=== PATIENT | female | born 1980 | race Caucasian/White ===

== ENCOUNTER → 2017-08-17 | Outpatient (REF) | payer BC ==
[2017-08-21 14:16] LABS: HPV HYBRID CAPTURE II Negative (Negative)
== END ==
LOC: M LAB REF 17:23
DX: Z12.4 Encounter for screening for malignant neoplasm of cervix (principal)
CPT/HCPCS: G0123

== ENCOUNTER → 2017-08-28 | Outpatient (CLI) | payer BC ==
[2017-08-28 11:07] LABS: HEMATOCRIT 40.5 % (36.0-47.0); MEAN CORPUSCULAR HEMOGLOBIN 31.5 pg (27.0-33.0); MEAN CORPUSCULAR HGB CONC 34.6 g/dl (32.0-36.5); MEAN CORPUSCULAR VOLUME 91.2 fl (80.0-96.0); PLATELET COUNT, AUTOMATED 219 10^3/uL (150-450); RED BLOOD COUNT 4.44 10^6/uL (4.00-5.40); RED CELL DISTRIBUTION WIDTH 12.2 % (11.5-14.5); WHITE BLOOD COUNT 11.1 10^3/uL (4.0-10.0)
[2017-08-28 11:37] LABS: FREE T4 0.76 NG/DL (0.76-1.46)
== END ==
LOC: M RAD 09:03
DX: N92.0 Excessive and frequent menstruation with regular cycle (principal)
CPT/HCPCS: 76856

== ENCOUNTER → 2017-09-20 | Outpatient (REF) | payer BC | LOC: M LAB REF 19:21 | DX: N92.0 Excessive and frequent menstruation with regular cycle (principal) ==

== ENCOUNTER 2017-12-14 05:43 | Day surgery (SDC) | payer BC ==
[2017-12-14 06:12] LABS: HEMATOCRIT 39.3 % (36.0-47.0); HEMOGLOBIN 13.2 g/dl (12.0-15.5); MEAN CORPUSCULAR HEMOGLOBIN 30.9 pg (27.0-33.0); MEAN CORPUSCULAR HGB CONC 33.6 g/dl (32.0-36.5); PLATELET COUNT, AUTOMATED 237 10^3/uL (150-450); RED BLOOD COUNT 4.27 10^6/uL (4.00-5.40); RED CELL DISTRIBUTION WIDTH 12.2 % (11.5-14.5); WHITE BLOOD COUNT 10.9 10^3/uL (4.0-10.0)
[2017-12-14] MEDS ORDERED: ONDANSETRON 4MG/2ML VIAL (J2405) As Ordered (06:17)
[2017-12-14] MEDS ORDERED: KETOROLAC 60 MG/2 ML VIAL (J1885) As Ordered (06:17)
[2017-12-14] MEDS ORDERED: dexameTHASONE 4 MG/ML 1ML VIAL (J1100) As Ordered (06:17)
[2017-12-14] MEDS ORDERED: PROPOFOL 200 MG/20 ML VIAL As Ordered (06:18)
[2017-12-14] MEDS ORDERED: LIDOCAINE 2% INJ 100 MG/5 ML SDV (FOR ANES.) As Ordered (06:18)
[2017-12-14] MEDS ORDERED: ROCURONIUM BROMIDE 50 MG/5 ML VIAL As Ordered (06:18)
[2017-12-14] MEDS ORDERED: fentaNYL 100 MCG/2 ML INJECTION (J3010) As Ordered (06:23)
[2017-12-14] MEDS ORDERED: MIDAZOLAM INJ 2 MG/2 ML VIAL (J2250) As Ordered (06:23)
[2017-12-14] MEDS: LR 1,000 ML IV ×4 (06:50→15:33)
[2017-12-14] MEDS: CIPROFLOXACIN 400 MG in APPROPRIATE DILUENT 1 EA IV (06:50)
[2017-12-14] MEDS ORDERED: diphenhydrAMINE INJ 50MG/ML VIAL (J1200) As Ordered (07:25)
[2017-12-14] MEDS ORDERED: SCOPOLAMINE 1MG TRANSDERMAL PATCH As Ordered (07:25)
[2017-12-14] MEDS: diphenhydrAMINE INJ 50MG/ML VIAL (J1200) IV (07:30)
[2017-12-14] MEDS: metroNIDAZOLE 500 MG in APPROPRIATE DILUENT 1 EA IV (07:37)
[2017-12-14] MEDS ORDERED: HYDROmorphone HCL 2 MG/ML 1ML VIAL (J1170) As Ordered (08:03)
[2017-12-14] MEDS: AZTREONAM 2 GM in D5W MINI-BAG PLUS 50 ML IV (08:39)
[2017-12-14] MEDS ORDERED: NEOSTIGMINE 10 MG/10 ML VIAL (J2710) As Ordered ×2 (09:42)
[2017-12-14] MEDS ORDERED: GLYCOPYRROLATE INJ 0.2 MG/ML 2 ML VIAL As Ordered ×2 (09:43)
[2017-12-14] MEDS: BUPIVACAINE HCL 0.25% 30 ML VIAL As Ordered (09:45)
[2017-12-14] MEDS: METHYLENE BLUE 0.5% (5MG/ML) 10 ML AMP (PROVAYBLUE)(Q9968 PER 1MG) As Ordered (10:09)
[2017-12-14] MEDS ORDERED: MORPHINE 10 MG/ML 1ML VIAL (J2270) IV (10:30)
[2017-12-14] MEDS ORDERED: PERCOCET 5MG/325MG TAB PO ×2 (10:30)
[2017-12-14] MEDS ORDERED: zolPIDEM TARTRATE 10MG TAB PO (10:30)
[2017-12-14] MEDS ORDERED: MORPHINE 4 MG/ML 1ML VIAL/SYRINGE (J2270) IV (10:30)
[2017-12-14] MEDS ORDERED: PROMETHAZINE INJ 25 MG/ML VIAL (J2550) IV (10:30)
[2017-12-14] MEDS ORDERED: fentaNYL 100 MCG/2 ML INJECTION (J3010) IV (10:30)
[2017-12-14] MEDS ORDERED: ONDANSETRON 4MG/2ML VIAL (J2405) IV (10:30)
[2017-12-14] MEDS ORDERED: zolPIDEM TARTRATE 5 MG TAB PO (11:30)
[2017-12-14] MEDS: PERCOCET 5MG/325MG TAB PO ×2 (13:19→20:03)
[2017-12-14] MEDS: KETOROLAC 30 MG/ML VIAL (J1885) IV ×2 (15:33→22:22)
[2017-12-15] MEDS: KETOROLAC 30 MG/ML VIAL (J1885) IV (03:53)
[2017-12-15 07:04] LABS: HEMOGLOBIN 11.3 g/dl (12.0-15.5); MEAN CORPUSCULAR HGB CONC 34.2 g/dl (32.0-36.5); MEAN CORPUSCULAR VOLUME 93.5 fl (80.0-96.0); PLATELET COUNT, AUTOMATED 204 10^3/uL (150-450); RED BLOOD COUNT 3.53 10^6/uL (4.00-5.40); RED CELL DISTRIBUTION WIDTH 12.4 % (11.5-14.5); WHITE BLOOD COUNT 17.5 10^3/uL (4.0-10.0)
[2017-12-15] MEDS: PERCOCET 5MG/325MG TAB PO (09:15)
== END 2017-12-15 09:23 | disposition home or self-care (01) ==
LOC: M SDC 05:43 → M PED 11:00
DX: N93.9 Abnormal uterine and vaginal bleeding, unspecified (principal); N72 Inflammatory disease of cervix uteri; N80.0 Endometriosis of uterus; N83.8 Other noninflammatory disorders of ovary, fallopian tube and broad ligament; T88.59XD Other complications of anesthesia, subsequent encounter; Z88.0 Allergy status to penicillin; Z88.8 Allergy status to other drugs, medicaments and biological substances; Z72.0 Tobacco use; Z98.51 Tubal ligation status
CPT/HCPCS: 58571

== ENCOUNTER → 2018-02-22 | Outpatient (CLI) | payer BC ==
[~2018-02-22] MED LIST: /PANT40TA PO; CARA1TAB2 PO; CEFD300CAP PO; CLIN150C PO; IBUP200T2 PO; METR500T10 PO; PERCOCET PO; PERI12LIQ MT; TYLE650T30 PO; clindamycin OR; sudafed OR
[2018-02-22 11:01] LABS: HEMATOCRIT 40.2 % (36.0-47.0); HEMOGLOBIN 13.6 g/dl (12.0-15.5); MEAN CORPUSCULAR HEMOGLOBIN 31.4 pg (27.0-33.0); MEAN CORPUSCULAR HGB CONC 33.8 g/dl (32.0-36.5); MEAN CORPUSCULAR VOLUME 92.8 fl (80.0-96.0); PLATELET COUNT, AUTOMATED 226 10^3/uL (150-450); RED BLOOD COUNT 4.33 10^6/uL (4.00-5.40); WHITE BLOOD COUNT 9.7 10^3/uL (4.0-10.0)
[2018-02-22 11:32] LABS: ALBUMIN 3.9 GM/DL (3.2-5.2); ALT/SGPT 23 U/L (12-78); BILIRUBIN,TOTAL 0.7 MG/DL (0.2-1.0); BLOOD UREA NITROGEN 17 MG/DL (7-18); CALCIUM LEVEL 8.8 MG/DL (8.5-10.1); CARBON DIOXIDE LEVEL 26 MEQ/L (21-32); CHLORIDE LEVEL 108 MEQ/L (98-107); CHOLESTEROL LEVEL 172 MG/DL (<200); CHOLESTEROL RISK RATIO 5.548 (<5); CREATININE FOR GFR 0.79 MG/DL (0.55-1.30); GLOMERULAR FILTRATION RATE > 60.0 (>60); GLUCOSE, FASTING 86 MG/DL (70-100); HDL CHOLESTEROL 31 MG/DL (>40); LDL CHOLESTEROL 119 MG/DL (<100); NON-HDL-C 141 MG/DL; POTASSIUM SERUM 4.6 MEQ/L (3.5-5.1); SODIUM LEVEL 140 MEQ/L (136-145); TOTAL PROTEIN 7.1 GM/DL (6.4-8.2); TRIGLYCERIDES LEVEL 112 MG/DL (<150)
[2018-02-22 11:34] LABS: TOTAL 25(OH) VITAMIN D 24.8 NG/ML (30.0-100.0)
--- NOTE | 2018-02-22 12:09 | REP ---
Chest two views HISTORY: Hypertension Comparison: None The lungs are clear. The heart is normal in size. The pulmonary vasculature is normal in appearance. The bony structure is intact. IMPRESSION: No acute disease. Electronically Signed by Johnathon Hugo MD 02/22/2018 12:01 P
[2018-02-22 12:21] LABS: HEMOGLOBIN A1c 5.6 %
--- NOTE | 2018-02-22 20:56 | ECGEPIP ---
Stationary ECG Study [facility] Test Date: 2018-02-22 Pat Name: TIFFANY AGUIRRE Department: Room: - Gender: F Supervisor Production Managing: NELSON : 1980 Requested By: Torie Miller Order Number: [id number] Reading MD: Karen Cotton Measurements Intervals [place] Rate: 71 P: 56 GA: 169 QRS: 30 QRSD: 86 T: 41 QT: 368 QTc: 401 Interpretive Statements SINUS RHYTHM NO PRIOR Electronically Signed On 02-22-2018 20:55:38 EST by Karen Cotton
== END ==
LOC: M LAB 10:08
PROVIDERS: ATTEND Family Medicine
DX: I10 Essential (primary) hypertension (principal); E03.9 Hypothyroidism, unspecified; R53.83 Other fatigue

== ENCOUNTER → 2018-05-16 | Outpatient (CLI) | payer BC ==
--- NOTE | 2018-05-16 19:06 | REP ---
Clinical: Followup renal cyst. A history of chronic medical renal disease. Comparison: 01/05/2017. Findings: The right kidney is normal in reniform shape without hydronephrosis and measures 10.9 x 5.4 x 6.6 cm. A 3.1 cm round hyperechoic lesion is identified consistent with angiomyolipoma along with 3.2 x 3.1 x 2.7 cm lower pole complex cyst. The left ovary is normal in reniform shape without hydronephrosis and measures 12.7 x 5.0 x 6.5 cm without cystic or mass lesion. The bladder is under distended. Impression: 1. Right kidney remains stable including angiomyolipoma and complex lower pole cyst. Left kidney normal. Electronically Signed by Ramon Roy MD 05/16/2018 06:57 P
== END ==
LOC: M RAD 14:01
PROVIDERS: ATTEND Internal Medicine Nephrology
DX: N18.2 Chronic kidney disease, stage 2 (mild) (principal); D17.71 Benign lipomatous neoplasm of kidney; N28.1 Cyst of kidney, acquired

== ENCOUNTER → 2019-11-04 | Outpatient (CLI) | payer BC ==
[~2019-11-04] MED LIST changes: -/PANT40TA PO; +CEFD1CAP8 PO; -CEFD300CAP PO; +CHLO1SOL MT; +OXYC1TAB23 PO; -PERI12LIQ MT; +PROT1TAB2 PO
--- NOTE | 2019-12-02 13:42 | REP ---
RENAL ULTRASOUND CLINICAL: Benign neoplasm. COMPARISON: 05/16/2018. TECHNIQUE: Real-time landa scale and color Doppler evaluation using curved array transducer. FINDINGS: The right kidney measures 11.4 x 5.4 x 6.4 cm and includes stable 3.5 x 3.1 x 3.3 cm angiomyolipoma in the mid pole region, and a 3.3 x 3.3 x 3.4 cm simple lower pole cyst. A 6-mm nonobstructing calculus in the renal pelvis is suggested. No hydronephrosis. Left kidney measures 12.3 x 6.0 x 5.5 cm and appears normal. Bladder is unremarkable. 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 * A 6-mm nonobstructing right renal calculus suggested. [facility]
== END ==
LOC: M RAD 14:11
PROVIDERS: ATTEND Internal Medicine Nephrology
DX: N18.2 Chronic kidney disease, stage 2 (mild) (principal); D17.71 Benign lipomatous neoplasm of kidney; N28.1 Cyst of kidney, acquired

== ENCOUNTER → 2021-06-06 | Outpatient (CLI) | payer OTHER | LOC: M WHC 11:52 | PROVIDERS: ATTEND Physician Assistant Medical | DX: M79.605 Pain in left leg (principal); R22.42 Localized swelling, mass and lump, left lower limb ==

== ENCOUNTER → 2021-06-06 | Outpatient (CLI) | payer OTHER | LOC: M WUC 13:02 | PROVIDERS: ATTEND Physician Assistant Medical | DX: M25.552 Pain in left hip (principal) ==

== ENCOUNTER → 2021-10-24 | Outpatient (CLI) | payer OTHER | LOC: M SOG 10:18 | PROVIDERS: ATTEND Orthopaedic Surgery | DX: M54.32 Sciatica, left side (principal) ==

== ENCOUNTER → 2021-11-01 | Outpatient (REF) | payer OTHER | LOC: M LAB REF 16:02 | PROVIDERS: ATTEND Physician Assistant Medical | DX: M79.605 Pain in left leg (principal) ==

== ENCOUNTER 2021-11-21 08:50 | Emergency (ER) | payer OTHER ==
[~2021-11-21] VITALS: Ht 172.7 cm; Wt 85.0 kg
[2021-11-21] MEDS ORDERED: IBUP-1022 PO (09:09)
[2021-11-21] MEDS ORDERED: GABAPENTIN 300 MG CAP PO ONE (10:25)
[2021-11-21] MEDS ORDERED: diazePAM 5MG TABLET PO ONE (10:50)
[2021-11-21 10:58] LABS: BASO % 0.4 % (0.0-1.0); EOS # 0.2 10^3/uL (0.0-0.5); EOS % 1.5 % (0.0-3.0); HEMATOCRIT 38.9 % (36.0-47.0); HEMOGLOBIN 13.2 g/dl (12.0-15.5); LYMPH # 2.8 10^3/uL (1.5-5.0); MEAN CORPUSCULAR HEMOGLOBIN 32.6 pg (27.0-33.0); MEAN CORPUSCULAR HGB CONC 33.9 g/dl (32.0-36.5); MONO # 0.7 10^3/uL (0.0-0.8); MONO % 6.7 % (2.0-8.0); NEUTROPHILS # 6.6 10^3/uL (1.5-8.5); NEUTROPHILS % 63.7 % (36.0-66.0); PLATELET COUNT, AUTOMATED 233 10^3/uL (150-450); RED BLOOD COUNT 4.05 10^6/uL (4.00-5.40); WHITE BLOOD COUNT 10.3 10^3/uL (4.0-10.0)
[2021-11-21 11:18] LABS: ERYTHROCYTE SEDIMENTATION RATE 8 mm/hr (0-20)
[2021-11-21 11:32] LABS: ALT/SGPT 44 U/L (12-78); BILIRUBIN,DIRECT < 0.1 MG/DL (0.0-0.2); BILIRUBIN,TOTAL 0.6 MG/DL (0.2-1.0); BLOOD UREA NITROGEN 14 MG/DL (7-18); CARBON DIOXIDE LEVEL 24 MEQ/L (21-32); CHLORIDE LEVEL 111 MEQ/L (98-107); CREATININE FOR GFR 0.71 MG/DL (0.55-1.30); GLOMERULAR FILTRATION RATE > 60.0 (>58); GLUCOSE, FASTING 90 MG/DL (70-100); POTASSIUM SERUM 4.3 MEQ/L (3.5-5.1); SODIUM LEVEL 140 MEQ/L (136-145)
[2021-11-21 11:33] LABS: ALBUMIN 3.7 GM/DL (3.2-5.2); LIPASE 74 U/L (73-393); TOTAL PROTEIN 6.8 GM/DL (6.4-8.2)
[2021-11-21] MEDS ORDERED: GABA-282 PO (14:06)
[2021-11-21] MEDS ORDERED: KETO10TAB PO (14:06)
[2021-11-21 14:19] VITALS: BP 114/82
== END 2021-11-21 14:23 | disposition home or self-care (01) ==
LOC: M ED 08:50
DX: M51.26 Other intervertebral disc displacement, lumbar region (principal); M54.16 Radiculopathy, lumbar region; M79.605 Pain in left leg; I10 Essential (primary) hypertension; F17.200 Nicotine dependence, unspecified, uncomplicated; Z88.0 Allergy status to penicillin; Z88.1 Allergy status to other antibiotic agents; Z79.899 Other long term (current) drug therapy

== ENCOUNTER → 2022-08-01 | Outpatient (REF) | payer OTHER, BC ==
[~2022-08-01] MED LIST changes: +GABA-282 PO; +IBUP-1022 PO; +KETO10TAB PO
== END ==
LOC: M LAB REF 13:50
PROVIDERS: ATTEND Physician Assistant Medical
DX: R10.84 Generalized abdominal pain (principal)

== ENCOUNTER → 2022-08-03 | Outpatient (CLI) | payer BC | LOC: M WHC 12:41 | PROVIDERS: ATTEND Physician Assistant Medical | DX: Z12.31 Encounter for screening mammogram for malignant neoplasm of breast (principal) ==

== ENCOUNTER → 2023-08-24 | Outpatient (CLI) | payer BC | LOC: M RAD 09:54 | PROVIDERS: ATTEND Physician Assistant | DX: Z87.442 Personal history of urinary calculi (principal); D17.71 Benign lipomatous neoplasm of kidney; N28.1 Cyst of kidney, acquired ==

== ENCOUNTER → 2023-09-05 | Outpatient (CLI) | payer BC | LOC: M WHC 13:10 | PROVIDERS: ATTEND Physician Assistant Medical | DX: Z12.31 Encounter for screening mammogram for malignant neoplasm of breast (principal) ==

== ENCOUNTER → 2023-11-02 | Outpatient (REF) | payer BC ==
[2023-11-02 18:38] LABS: FOLLICLE STIMULATING HORMONE 5.1 mIU/ML; LUTEINIZING HORMONE 3.8 mIU/ML
[2023-11-02 18:39] LABS: ESTRADIOL 147.4 PG/ML; PROGESTERONE < 0.21 NG/ML
[2023-11-10 00:43] LABS: TESTOSTERONE FREE (DIRECT) 16.4 pg/mL (0.1-6.4)
== END ==
LOC: M LAB REF 16:15
PROVIDERS: ATTEND Obstetrics & Gynecology
DX: N95.1 Menopausal and female climacteric states (principal); E34.9 Endocrine disorder, unspecified; F52.0 Hypoactive sexual desire disorder

== ENCOUNTER → 2024-09-29 | Outpatient (CLI) | payer BC ==
[~2024-09-29] MED LIST changes: +GABA-1172 PO; -GABA-282 PO
== END ==
LOC: M WHC 13:06
PROVIDERS: ATTEND Physician Assistant Medical
DX: Z12.31 Encounter for screening mammogram for malignant neoplasm of breast (principal); R92.323 Mammographic fibroglandular density, bilateral breasts